=== PATIENT | female | born 1975 | race Caucasian/White ===

== ENCOUNTER 2018-08-24 10:26 | Emergency (ER) | payer OTHER ==
[~2018-08-24] VITALS: Ht 157.5 cm; Wt 75.7 kg
[~2018-08-24 10:26] MED LIST: MOTRIN800 MG PO
[2018-08-24 10:39] VITALS: Ht 157.5 cm; Wt 75.7 kg
[2018-08-24 14:10] VITALS: BP 123/79
== END 2018-08-24 14:11 | disposition home or self-care (01) ==
LOC: ED 10:26
DX: J20.9 Acute bronchitis, unspecified (principal); M79.10 Myalgia, unspecified site; Z90.710 Acquired absence of both cervix and uterus
CPT/HCPCS: J7512; J7613; J7644; Q0092